=== PATIENT | female | born 1985 | race American Indian/Alaskan Native ===

== ENCOUNTER 2018-06-26 16:53 | Emergency (ER) | payer SELFPAY ==
[2018-06-26 17:07] VITALS: PULSE 76; O2SAT 100
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
[2018-06-26 18:13] LABS: HCG,QUALITATIVE URINE NEGATIVE (NEGATIVE)
[2018-06-26 18:18] LABS: SQUAMOUS EPITHIAL 2 /hpf (0-5); URINE BILIRUBIN NEGATIVE (NEGATIVE); URINE CLARITY Clear (Clear); URINE COLOR Yellow (YELLOW); URINE GLUCOSE (UA) NORMAL (Normal); URINE LEUKOCYTE ESTERASE NEG Leu/uL (Negative); URINE PROTEIN NEGATIVE (NEGATIVE); URINE UROBILINOGEN NORMAL mg/dL (0.2-1.0)
[2018-06-26 18:19] LABS: URINE BLOOD 1+ (NEGATIVE)
[2018-06-26 18:20] LABS: BASO % 0.4 % (0.0-2.0); EOS # 0.2 K/uL (0.0-0.7); EOS % 2.9 % (0.0-4.0); HEMOGLOBIN 11.6 g/dL (11.0-16.0); LYMPH # 2.7 K/uL (1.0-4.3); LYMPH % 35.3 % (20.0-40.0); MEAN CELL VOLUME 92.3 fL (81.0-99.0); MEAN CORPUSCULAR HEMOGLOBIN 32.1 pg (27.0-31.0); MEAN CORPUSCULAR HGB CONC 34.8 g/dL (33.0-37.0); MEAN PLATELET VOLUME 8.2 fL (7.2-11.7); MONO # 0.6 K/uL (0.0-0.8); MONO % 7.3 % (0.0-10.0); NEUT # 4.1 K/uL (1.8-7.0); NEUT % 54.1 % (50.0-75.0); RBC 3.63 Mil/uL (3.80-5.20); WHITE BLOOD COUNT 7.5 K/uL (4.8-10.8)
[2018-06-26 18:28] LABS: ALB/GLOB RATIO 1.5 (1.0-2.1); ALBUMIN 4.4 g/dL (3.5-5.0); ALT/SGPT 28 U/L (9-52); AST/SGOT 32 U/L (14-36); BLOOD UREA NITROGEN 9 mg/dL (7-17); GFR NON-AFRICAN AMERICAN > 60
[2018-06-26 20:13] VITALS: BP 159/111; RESP 18; TEMP 98.7
--- NOTE | 2018-06-27 11:16 | US ---
Date of service: 06/26/2018 HISTORY: vaginal bleeding, pos preg test COMPARISON: None available. TECHNIQUE: Transabdominal and transvaginal pelvic ultrasound was performed. FINDINGS: UTERUS: Measures 10.8 x 4.8 x 6.2 cm. Normal in size and appearance. No fibroid or other mass lesion seen. ENDOMETRIUM: Measures 19 mm in diameter. The central endometrial echo complex is thick and heterogeneous. No evidence of intrauterine gestation. CERVIX: No cervical abnormality identified. RIGHT OVARY: Measures 3.1 x 1.4 x 2.7 cm. No solid mass. Normal flow. LEFT OVARY: Measures 5.0 x 3.2 x 4.5 cm. No solid mass. Normal flow. There is a 3.3 x 2.4 x 3.4 cm simple cyst. FREE FLUID: There is small amount of free fluid in the cul de sac. OTHER FINDINGS: None. IMPRESSION: Thick heterogeneous central endometrial echo complex. No evidence of intrauterine gestation. 3.4 cm simple cyst in the left ovary. A preliminary report was provided by [employer]
== END 2018-06-26 20:36 | disposition home or self-care (01) ==
LOC: C.ER 16:53
DX: O03.9 Complete or unspecified spontaneous abortion without complication (principal)

== ENCOUNTER 2018-10-29 20:57 | Emergency (ER) | payer OTHER ==
[2018-10-29 21:11] VITALS: BP 135/90; PULSE 90; RESP 20; TEMP 98.7; O2SAT 100
--- NOTE | 2018-10-29 21:22 | C.PDOC ---
History Of Present Illness 33 y/o female presents to ED for medical evaluation of right buttock pain due to abscess/ sebaceous cyst s/p I&D on 10/21. Patient states that she was seen in the clinic and had abscess drained and asked to return tomorrow for follow up wound care. However patient grew concerned because she noticed worsening foul odor emanating from site and believes she may have tore one of the sutures whrn she sat down today. She also reports sharp pain in the area. She denies fever, chills, nausea, vomiting, abdominal pain, and diarrhea. Time Seen by Provider: 10/29/18 21:13 Chief Complaint (Nursing): Abnormal Skin Integrity History Per: Patient History/Exam Limitations: no limitations Onset/Duration Of Symptoms: Days Current Symptoms Are (Timing): Still Present Location Of Injury: Right: Buttock Quality Of Symptoms: Painful, Draining Severity: Moderate Pain Scale Rating Of: 5 Recent travel outside of the [place]: No Past Medical History Reviewed: Historical Data, Nursing Documentation, Vital Signs Vital Signs: Last Vital Signs Temp 98.7 F 10/29/18 21:04 Pulse 90 10/29/18 21:04 Resp 20 10/29/18 21:04 BP 135/90 10/29/18 21:04 Pulse Ox 100 10/29/18 21:04 - Medical History PMH: HTN Family History: States: Unknown Family Hx - Social History Hx Tobacco Use: No Hx Alcohol Use: No Hx Substance Use: No - Immunization History Hx Tetanus Toxoid Vaccination: No Hx Influenza Vaccination: No Hx Pneumococcal Vaccination: No Review Of Systems Constitutional: Negative for: Fever, Chills, Weakness Cardiovascular: Negative for: Chest Pain Respiratory: Negative for: Shortness of Breath Gastrointestinal: Positive for: Other (right buttock pain). Negative for: Nausea, Vomiting, Abdominal Pain, Diarrhea Skin: Negative for: Rash Neurological: Negative for: Headache, Dizziness Physical Exam - Physical Exam Appears: Non-toxic, No Acute Distress Skin: Warm, Dry Chest: Symmetrical Cardiovascular: Rhythm Regular Respiratory: Normal Breath Sounds, No Wheezing Gastrointestinal/Abdominal: Soft, No Tenderness Rectal: Other (~ 2.5cm in diameter incision site with [address]; nonerythematous; nonfluctuant; no induration; fould smelling curd like drainage noted between sutures) Extremity: Normal ROM Extremity: Bilateral: Atraumatic, Normal Color And Temperature, Normal ROM Neurological/Psych: Oriented x3, Normal Speech, Normal Cognition, Normal Motor, Normal Sensation Gait: Steady ED Course And Treatment O2 Sat by Pulse Oximetry: 100 Medical Decision Making Medical Decision Making: abscess/sebaceous cyst noted on right buttock with [address] minimal foul smelling curd like drainage gently expressed; no obvious packing noted no erythema or induration noted area slightly tender to touch patient states she has a scheduled appt tomorrow but was concerned that she may have tore one of the sutures reassured patient and advised her to keep her scheduled appt for further treatment VSS, Afebrile patient is stable for discharge Disposition Counseled Patient/Family Regarding: Diagnosis, Need For Followup, Rx Given - Disposition Referrals: [facility] at [facility] [Outside] Disposition: HOME/ ROUTINE Disposition Time: 22:00 Condition: STABLE Additional Instructions: Follow up in Clinic for scheduled appt tomorrow for further assessment of abscess/ sebaceous cyst continue motrin as needed for pain return to ED if symptoms worsen Instructions: Skin Abscess Forms: [employer] ([place]) - Clinical Impression Clinical Impression: Abscess - PA / [employer] / Resident Statement MD/DO has reviewed & agrees with the documentation as recorded.
== END 2018-10-29 21:13 | disposition left against medical advice (07) ==
LOC: C.ER 20:57
DX: L02.31 Cutaneous abscess of buttock (principal); I10 Essential (primary) hypertension